=== PATIENT | female | born 1955 | race Caucasian/White ===

== ENCOUNTER 2022-03-19 16:20 | Emergency (ER) | payer OTHER, MEDICARE ==
[~2022-03-19] VITALS: Ht 170.2 cm; Wt 69.0 kg
--- OUTSIDE RECORDS SUMMARY | 2022-03-19 16:22 | XMS ---
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 [place] VISIT COUNT (12 MO.) 1 [facility] 1 [facility] TOTAL 2 NOTE: Visits indicate total known visits. ED/UCC VISIT TRACKING (12 MO.) 03/19/2022 16:21 [facility] [place] TYPE: Emergency COMPLAINT: - [facility] DIAGNOSES: - Generalized abdominal pain - Nausea - Other specified postprocedural states - Post-op Problem - Abdominal Pain - Nausea with vomiting, unspecified INPATIENT VISIT TRACKING (12 MO.) No inpatient visits to display in this time frame [email or web address]
[2022-03-19] MEDS ORDERED: BUPROPION XL150 MG PO (16:36)
[2022-03-19] MEDS ORDERED: ATORVASTATIN CA40 MG PO (16:36)
[2022-03-19] MEDS ORDERED: METFORMIN HCL500 MG PO (16:36)
[2022-03-19] MEDS ORDERED: ALPRAZOLAM0.25 MG PO (16:37)
[2022-03-19] MEDS ORDERED: LISINOPRIL5 MG PO (16:37)
[2022-03-19] MEDS ORDERED: DULOXETINE HCL60 MG PO (16:37)
[2022-03-19] MEDS ORDERED: BENADRYL25 MG PO (16:38)
[2022-03-19] MEDS ORDERED: PROCHLORPERAZIN10 MG PO ×2 (16:39→21:34)
[2022-03-19] MEDS ORDERED: IMITREX25 MG PO (16:42)
[2022-03-19] MEDS ORDERED: ONDANSETRON ODT8 MG PO (21:34)
== END 2022-03-19 21:58 | disposition home or self-care (01) ==
LOC: ED 16:20
DX: R11.15 Cyclical vomiting syndrome unrelated to migraine (principal); E11.9 Type 2 diabetes mellitus without complications; E78.00 Pure hypercholesterolemia, unspecified; Z88.7 Allergy status to serum and vaccine; Z79.899 Other long term (current) drug therapy; Z98.84 Bariatric surgery status
CPT/HCPCS: 36415; 80053; 81001; 83735; 85025; 96361; 96374; 96375; 99284-25; A9270; J1200; J1885; J2765; J7030

== ENCOUNTER 2022-04-03 08:09 | Emergency (ER) | payer OTHER ==
[~2022-04-03] VITALS: Ht 170.2 cm; Wt 64.5 kg
[~2022-04-03 08:09] MED LIST: ALPRAZOLAM0.25 MG PO; ATORVASTATIN CA40 MG PO; BENADRYL25 MG PO; BUPROPION XL150 MG PO; DULOXETINE HCL60 MG PO; IMITREX25 MG PO; LISINOPRIL5 MG PO; METFORMIN HCL500 MG PO; ONDANSETRON ODT8 MG PO; PROCHLORPERAZIN10 MG PO
--- OUTSIDE RECORDS SUMMARY | 2022-04-03 08:13 | XMS ---
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 EPearl VISIT COUNT (12 MO.) 1 Jacob Prajapati M.C[facility] [address] [place] [address] TOTAL 3 NOTE: Visits indicate total known visits. ED/C VISIT TRACKING (12 MO.) 04/03/2022 08:10 [facility] [place] TYPE: Emergency COMPLAINT: - ABD PAIN 03/19/2022 16:21 [facility] [place] TYPE: Emergency COMPLAINT: - NAUSEA DIAGNOSES: - Allergy status to serum and vaccine - Nausea - Bariatric surgery status - Other truck terminal manager (current) drug therapy - Pure hypercholesterolemia, unspecified - Type 2 diabetes mellitus without complications - Cyclical vomiting syndrome unrelated to migraine [facility] DIAGNOSES: - Other specified postprocedural states - Post-op Problem - Abdominal Pain - Nausea with vomiting, unspecified - Generalized abdominal pain - Nausea INPATIENT VISIT TRACKING (12 MO.) No inpatient visits to display in this time frame [email or web address]
[2022-04-03] MEDS ORDERED: HALOPERIDOL5 MG PO (14:42)
[2022-04-03] MEDS ORDERED: OMEPRAZOLE20 MG PO (14:42)
== END 2022-04-03 14:50 | disposition home or self-care (01) ==
LOC: ED 08:09
DX: R11.2 Nausea with vomiting, unspecified (principal); E11.9 Type 2 diabetes mellitus without complications; Z88.7 Allergy status to serum and vaccine; Z79.899 Other long term (current) drug therapy; Z79.84 Long term (current) use of oral hypoglycemic drugs
CPT/HCPCS: 36415; 74177; 80053; 81001; 83690; 85025; 96361; 96375; 96376; 99284-25; C9113; J1200; J1790; J2060; J2405; J7030; Q9967

== ENCOUNTER 2022-04-15 09:35 | Emergency (ER) | payer MEDICARE, OTHER ==
[~2022-04-15] VITALS: Ht 170.2 cm; Wt 63.5 kg
[~2022-04-15 09:35] MED LIST changes: +HALOPERIDOL5 MG PO; +OMEPRAZOLE20 MG PO
--- OUTSIDE RECORDS SUMMARY | 2022-04-15 09:38 | XMS ---
PreManage Notification: DAVID KERNS Security [employer] Events No recent Security Events currently on file CRITERIA MET - [facility] - 2 Visits in 30 Days CARE PROVIDERS [facility] Current PHONE: Unknown Edgar has no Care Guidelines for this patient. [place] VISIT COUNT (12 MO[address] 3 [facility] TOTAL 3 NOTE: Visits indicate total known visits. ED/UCC VISIT TRACKING (12 MO.) 04/15/2022 09:36 [facility] [place] TYPE: Emergency COMPLAINT: - NAUSEA 04/03/2022 08:10 [facility] [place] TYPE: Emergency COMPLAINT: - ABD PAIN DIAGNOSES: - penitentiary (current) use of oral hypoglycemic drugs - Other [facility] (current) drug therapy - Epigastric pain - Allergy status to serum and vaccine - Type 2 diabetes mellitus without complications - Nausea with vomiting, unspecified 03/19/2022 16:21 [facility] [place] TYPE: Emergency COMPLAINT: - NAUSEA DIAGNOSES: - Type 2 diabetes mellitus without complications - Cyclical vomiting syndrome unrelated to migraine - Allergy status to serum and vaccine - Nausea - Bariatric surgery status - Other [facility] (current) drug therapy - Pure hypercholesterolemia, unspecified INPATIENT VISIT TRACKING (12 MO.) No inpatient visits to display in this time frame [email or web address]
[2022-04-15] MEDS ORDERED: DOXEPIN HCL10 MG PO (11:45)
[2022-04-15] MEDS ORDERED: HYDROXYZINE HCL25 MG PO (11:46)
[2022-04-15] MEDS ORDERED: REGLAN10 MG PO (17:12)
--- NOTE | 2022-04-17 16:40 | EKG ---
[facility] [place] [facility] [address] [facility] [place], [place] [address] Signed Normal sinus rhythm Normal ECG No previous ECGs available Confirmed by YEISON TIERNEY MD ([id number]) on 04/17/2022 4:39:58 PM Electronically Signed By: YEISON TIERNEY MD 04/17/22 1640 PATIENT NAME: DAVID KERNS Electrocardiogram DATE OF : 51 PHYSICIAN: YEISON TIERNEY MD REPORT #: [id number] REPORT IS CONFIDENTIAL AND NOT TO BE RELEASED WITHOUT AUTHORIZATION
== END 2022-04-15 18:07 | disposition home or self-care (01) ==
LOC: ED 09:35
DX: R11.2 Nausea with vomiting, unspecified (principal); E11.9 Type 2 diabetes mellitus without complications; E78.00 Pure hypercholesterolemia, unspecified; Z88.7 Allergy status to serum and vaccine; Z79.899 Other long term (current) drug therapy; Z79.84 Long term (current) use of oral hypoglycemic drugs
CPT/HCPCS: 36415; 70450; 80053; 81001; 83690; 84484; 85025; 87088; 96361; 96374; 96375; 96376; 99284-25; J1200; J1790; J2060; J2765; J7121